=== PATIENT | female | born 1995 | race Caucasian/White ===

== ENCOUNTER 2016-11-11 20:03 | Emergency (ER) | payer SELFPAY ==
[2016-11-11 20:19] VITALS: BP 116/67; PULSE 90; RESP 16; TEMP 98.4; O2SAT 100
--- NOTE | 2016-11-11 21:30 | ED PDOC ---
HPI: General Adult Time Seen by Provider: 11/11/16 20:24 Chief Complaint (Nursing): ENT Problem Chief Complaint (Provider): sore throat History Per: Patient History/Exam Limitations: no limitations Onset/Duration Of Symptoms: Days (x 1) Additional Complaint(s): Brooklynn Guzman is a 21 year old female, with no previous medical history, who presents to the ED with complaints of sore throat and fever that started earlier today. Patient measured temp this morning and it was 101 but she did not take any meds for fever relief. Patient denies any shortness of breath, cough, nausea or vomiting. Patient is tolerating liquids and solids but has pain with swallowing. PMD: none provided Past Medical History Reviewed: Historical Data, Nursing Documentation, Vital Signs Vital Signs: Last Vital Signs Temp 98.4 F 11/11/16 20:18 Pulse 90 11/11/16 20:18 Resp 16 11/11/16 20:18 BP 116/67 11/11/16 20:18 Pulse Ox 100 11/11/16 21:34 - Medical History PMH: No Chronic Diseases - Surgical History Surgical History: No Surg Hx - Family History Family History: States: No Known Family Hx - Living Arrangements Living Arrangements: With Family - Social History Current smoker - smoking cessation education provided: No Alcohol: None Drugs: Denies - Home Medications Home Medications: Ambulatory Orders Medication Instructions Recorded Azithromycin [Zithromax] 250 mg PO DAILY #6 tab 11/11/16 Ibuprofen [Motrin] 600 mg PO Q6 PRN #15 tab 11/11/16 - Allergies Allergies/Adverse Reactions: Allergies Allergy/AdvReac Type Severity Reaction Status Date / Time No Known Allergies Allergy Verified 11/11/16 20:15 Review of Systems ROS Statement: Except As Marked, All Systems Reviewed And Found Negative Constitutional: Positive for: Fever. Negative for: Chills ENT: Positive for: Throat Pain. Negative for: Nose Congestion, Throat Swelling Respiratory: Negative for: Cough, Shortness of Breath Gastrointestinal: Negative for: Nausea, Vomiting Neurological: Negative for: Headache, Dizziness Physical Exam - Reviewed Nursing Documentation Reviewed: Yes Vital Signs Reviewed: Yes - Physical Exam Appears: Positive for: Well, Non-toxic, No Acute Distress Skin: Negative for: Rash Eye Exam: Positive for: Normal appearance, EOMI, PERRL ENT: Positive for: Pharyngeal Erythema, Tonsillar Exudate (bilaterally ), Tonsillar Swelling (bilaterally ) Cardiovascular/Chest: Positive for: Regular Rate, Rhythm Respiratory: Positive for: CNT, Normal Breath Sounds Lymphatic: Positive for: Adenopathy (b/l anterior cervical LAD) Neurologic/Psych: Positive for: Alert, Oriented - Laboratory Results Urine POC: Negative - ECG O2 Sat by Pulse Oximetry: 100 (RA) Pulse Ox Interpretation: Normal Medical Decision Making Medical Decision Making: Initial Impression: Tonsillitis and Pharyngitis Initial Plan: * urine * zithromax * throat culture * motrin * reevaluation Patient treated empirically with rx zithromax. Motrin rx also given. Patient was instructed to drink plenty of fluids and get plenty of rest. She was advised to follow up with clinic or primary doctor in 2-3 days. Scribe Attestation: Documented by Madonna Nichols, acting as a scribe for Stephanie Berrios PA-C. Provider Scribe Attestation: All medical record entries made by the Scribe were at my direction and personally dictated by me. I have reviewed the chart and agree that the record accurately reflects my personal performance of the history, physical exam, medical decision making, and the department course for this patient. I have also personally directed, reviewed, and agree with the discharge instructions and disposition. Disposition - Clinical Impression Clinical Impression: Tonsillitis, Pharyngitis - Patient ED Disposition Is Patient to be Admitted: No Counseled Patient/Family Regarding: Studies Performed, Diagnosis, Need For Followup, Rx Given - Disposition Referrals: [facility] [Outside] Disposition: Routine/Home Disposition Time: 21:49 Condition: STABLE Additional Instructions: Take prescription meds as directed. Rest and drink plenty of fluids. Follow-up with primary doctor or clinic in 2-3 days. Prescriptions: Azithromycin [Zithromax] 250 mg PO DAILY #6 tab Ibuprofen [Motrin] 600 mg PO Q6 PRN #15 tab PRN Reason: Pain, Moderate (4-7) Instructions: Tonsillitis (ED), Pharyngitis (ED)
== END 2016-11-11 22:03 | disposition home or self-care (01) ==
LOC: H.ER 20:03
DX: J03.90 Acute tonsillitis, unspecified (principal); R50.9 Fever, unspecified

== ENCOUNTER 2017-05-25 02:24 | Emergency (ER) | payer SELFPAY ==
[2017-05-25 02:43] VITALS: PULSE 107; RESP 16; TEMP 98.5; O2SAT 99
[2017-05-25] MEDS ORDERED: Sodium Chloride 0.9% 1,000 ML IV STA ×2 (02:57→04:14)
--- NOTE | 2017-05-25 03:13 | ED PDOC ---
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 (+) nausea, chills, and diarrhea x1 episode. (-) fever. Confirms that she has been vomiting every 20 minutes. Notes that she is vomiting yellow material after drinking Gatorade. PCP: None Past Medical History Reviewed: Historical Data, Nursing Documentation, Vital Signs Vital Signs: Last Vital Signs Temp 98.5 F 05/25/17 02:36 Pulse 107 H 05/25/17 02:36 Resp 16 05/25/17 02:36 BP 116/71 05/25/17 02:36 Pulse Ox 99 05/25/17 02:36 - Family History Family History: States: No Known Family Hx - Social History Alcohol: None Drugs: Denies - Home Medications Home Medications: Ambulatory Orders Medication Instructions Recorded Azithromycin [Zithromax] 250 mg PO DAILY #6 tab 11/11/16 Ibuprofen [Motrin] 600 mg PO Q6 PRN #15 tab 11/11/16 Ondansetron [Zofran] 4 mg PO Q8H #12 tab 05/25/17 - Allergies Allergies/Adverse Reactions: Allergies Allergy/AdvReac Type Severity Reaction Status Date / Time No Known Allergies Allergy Verified 11/11/16 20:15 Review of Systems ROS Statement: Except As Marked, All Systems Reviewed And Found Negative Constitutional: Positive for: Chills. Negative for: Fever Gastrointestinal: Positive for: Vomiting, Diarrhea Physical Exam - Reviewed Nursing Documentation Reviewed: Yes Vital Signs Reviewed: Yes - Physical Exam Appears: Positive for: Non-toxic, No Acute Distress Skin: Positive for: Normal Color, Warm, Dry Eye Exam: Positive for: Normal appearance ENT: Positive for: Normal ENT Inspection Neck: Positive for: Normal, Painless ROM, Supple Cardiovascular/Chest: Positive for: Regular Rate, Rhythm Respiratory: Positive for: Normal Breath Sounds. Negative for: Respiratory Distress Gastrointestinal/Abdominal: Positive for: Soft, Tenderness (epigastric tenderness) Neurologic/Psych: Positive for: Alert, Oriented. Negative for: Motor/Sensory Deficits - Laboratory Results Result Diagrams: 05/25/17 03:12 05/25/17 03:12 - ECG O2 Sat by Pulse Oximetry: 99 (RA) Pulse Ox Interpretation: Normal Medical Decision Making Medical Decision Makin Initial impression gastroenteritis Initial plan: * Labs * Lipase * NS IV * Protonix Inj 40mg IVP * Zofran Inj 4mg IVP * Re-eval 0546 Upon re-evaluation, patient is feeling much better and is stable for discharge. Dx: gastroenteritis Scribe Attestation: Documented by Shana Chaudhary acting as a scribe for Antonino Archuleta MD. Scribe Attestation: All medical record entries made by the Scribe were at my direction and personally dictated by me. I have reviewed the chart and agree that the record accurately reflects my personal performance of the history, physical exam, medical decision making, and the department course for this patient. I have also personally directed, reviewed, and agree with the discharge instructions and disposition. Disposition - Clinical Impression Clinical Impression: Gastroenteritis - Disposition Referrals: [facility] [Outside] Disposition: Routine/Home Disposition Time: 05:46 Condition: IMPROVED Prescriptions: Ondansetron [Zofran] 4 mg PO Q8H #12 tab Instructions: Gastroenteritis (ED) Forms: [employer] (Chinese)
[2017-05-25 03:21] LABS: EOS % 0.2 % (0.0-4.0); HEMATOCRIT 41.7 % (34.0-47.0); LYMPH # 0.5 K/uL (1.0-4.3); LYMPH % 2.5 % (20.0-40.0); MEAN CELL VOLUME 91.3 fl (81.0-99.0); MEAN CORPUSCULAR HEMOGLOBIN 30.6 pg (27.0-31.0); MEAN CORPUSCULAR HGB CONC 33.5 g/dL (33.0-37.0); MEAN PLATELET VOLUME 10.5 fl (7.2-11.7); MONO # 0.5 K/uL (0.0-0.8); MONO % 2.1 % (0.0-10.0); NEUT # 20.4 K/uL (1.8-7.0); NEUT % 95.2 % (50.0-75.0); PLATELET COUNT 229 K/uL (130-400); RED CELL DISTRIBUTION WIDTH 13.6 % (11.5-14.5); WHITE BLOOD COUNT 21.5 K/uL (4.8-10.8)
[2017-05-25 03:29] LABS: ALKALINE PHOSPHATASE 72 U/L (38-126); ALT/SGPT 33 U/L (9-52); AST/SGOT 18 U/L (14-36); BILIRUBIN,TOTAL 0.7 mg/dl (0.2-1.3); BLOOD UREA NITROGEN 21 mg/dl (7-17); CALCIUM 9.4 mg/dL (8.4-10.2); CARBON DIOXIDE 24 mmol/L (22-30); CHLORIDE 104 mmol/L (98-107); GFR AFRICAN-AMERICAN > 60; GLUCOSE,RANDOM 106 mg/dL (65-105); LIPASE 84 U/L (23-300); POTASSIUM 4.7 MMOL/L (3.6-5.0); SODIUM 142 mmol/l (132-148); TOTAL PROTEIN 9.4 G/DL (6.3-8.2)
[2017-05-25 03:30] LABS: ALB/GLOB RATIO 1.3 (1.0-2.1)
[2017-05-25 03:57] LABS: NEUTROPHIL 96 % (42-75); TOTAL CELLS COUNTED 100
[2017-05-25 05:59] VITALS: BP 100/51
== END 2017-05-25 05:59 | disposition home or self-care (01) ==
LOC: H.ER 02:24
DX: K52.9 Noninfective gastroenteritis and colitis, unspecified (principal)
CPT/HCPCS: 80053; 83690; 85025; 96361; 96365; 96375; 99282; C9113; J2405; J2765; J7040